=== PATIENT | female | born 2000 | race Caucasian/White ===

== ENCOUNTER 2023-02-28 16:43 | Emergency (ER) | payer OTHER, MEDICAID ==
[2023-02-28] MEDS ORDERED: Ketorolac 10 MG Tab PO ONE (20:21)
[2023-02-28] MEDS ORDERED: Methocarbamol 500 MG Tab PO ONE (20:21)
== END 2023-02-28 22:00 | disposition home or self-care (01) ==
LOC: JP.ED 16:43
DX: S16.1XXA Strain of muscle, fascia and tendon at neck level, initial encounter (principal); S29.012A Strain of muscle and tendon of back wall of thorax, initial encounter; Z88.8 Allergy status to other drugs, medicaments and biological substances; V59.69XA Unspecified occupant of pick-up truck or van injured in collision with other motor vehicles in traffic accident, initial encounter; Y92.410 Unspecified street and highway as the place of occurrence of the external cause
CPT/HCPCS: 71250; 72125; 76377; 99283; A9270-GY

== ENCOUNTER 2024-10-25 13:18 | Emergency (ER) | payer MEDICAID, OTHER ==
[2024-10-25] MEDS: Diphtheria,Pertussis(Acell),Tetanus Vaccine 0.5 ML Syringe IM ONE (14:12)
[2024-10-25] MEDS: Bacitracin Oint 1 GM U/D Packet TOP ONE (14:32)
== END 2024-10-25 14:44 | disposition home or self-care (01) ==
LOC: JP.ED 13:18
DX: S62.634A Displaced fracture of distal phalanx of right ring finger, initial encounter for closed fracture (principal); Z88.8 Allergy status to other drugs, medicaments and biological substances; Z79.899 Other long term (current) drug therapy; W23.1XXA Caught, crushed, jammed, or pinched between stationary objects, initial encounter; Z23 Encounter for immunization
CPT/HCPCS: 73140-26-F8; 73140-F8; 90471; 90715; 99282; 99283-25